=== PATIENT | female | born 1995 | race African-American/Black ===

== ENCOUNTER 2020-05-15 11:23 | Emergency (ER) | payer MEDICAID ==
[~2020-05-15] VITALS: Ht 160 cm; Wt 67.0 kg
[2020-05-15 12:10] VITALS: BP 114/73
[2020-05-15] MEDS ORDERED: HYDROcodone/APAP 5/325MG 1 TAB TABLET PO ONE (12:30)
--- NOTE | 2020-05-15 12:34 | PHYS DOC ---
Past Medical History Past Medical History: No Pertinent History Past Surgical History: Other Additional Past Surgical Histo: chest Smoking Status: Never Smoker Alcohol Use: Occasionally General Adult EDM: Chief Complaint: ANKLE PROBLEM HPI: HPI: Patient is a 25 year old female who presents with states she was out with friends last night when she rolled her left ankle inward. She states that was fine yesterday and when she woke this morning there was bruising to the medial and lateral foot and medial lateral ankle with swelling to the medial ankle. Range of motion is intact but it is painful so it is limited. Patient states she can wiggle her toes. She denies any numbness or tingling, coolness to the extremity, focal weakness. She states that she can put some pressure on it but it is painful. Patient rates her sharp pain at a 9 out of 10. She states she did not take any medication prior to arrival. Review of Systems: Review of Systems: Constitutional: Denies fever or chills. [] Eyes: Denies change in visual acuity. [] HENT: Denies nasal congestion or sore throat. [] Respiratory: Denies cough or shortness of breath. [] Cardiovascular: Denies chest pain. + Left ankle 2+ edema. + Left foot 1+ edema [] GI: Denies abdominal pain, nausea, vomiting, bloody stools or diarrhea. [] : Denies dysuria. [] Musculoskeletal: Denies back pain. +Left ankle joint pain. + Left foot pain [] Integument: Denies rash. + Left ankle bruising, + left ankle bruising [] Neurologic: Denies headache, focal weakness or sensory changes. [] Endocrine: Denies polyuria or polydipsia. [] Lymphatic: Denies swollen glands. [] Psychiatric: Denies depression or anxiety. [] Heart Score: Risk Factors: Risk Factors: DM, Current or recent (<one month) smoker, HTN, HLP, family history of CAD, obesity. Risk Scores: Score 0 - 3: 2.5% MACE over next 6 weeks - Discharge Home Score 4 - 6: 20.3% MACE over next 6 weeks - Admit for Clinical Observation Score 7 - 10: 72.7% MACE over next 6 weeks - Early Invasive Strategies Current Medications: Current Medications Medications (Trade) Dose Ordered Sig/Ananth Start Time Stop Time Status Last Admin Dose Admin Acetaminophen/ Hydrocodone Bitart (Lortab 5/325) 1 tab 1X ONCE 05/15/20 12:30 05/15/20 12:31 UNV Allergies: Allergies: Allergies Coded Allergies Type Severity Reaction Last Updated Verified No Known Drug Allergies 05/15/20 No Physical Exam: PE: Constitutional: Well developed, well nourished, no acute distress, non-toxic appearance. [] HENT: Normocephalic, atraumatic, bilateral external ears normal, oropharynx moist, no oral exudates, nose normal. [] Eyes: PERRLA, EOMI, conjunctiva normal, no discharge. [] Neck: Normal range of motion, no tenderness, supple, no stridor. [] Cardiovascular:Heart rate regular rhythm, no murmur [] Lungs & Thorax: Bilateral breath sounds clear to auscultation [] Abdomen: Bowel sounds normal, soft, no tenderness, no masses, no pulsatile masses. [] Skin: Warm, dry, no erythema, no rash. Left lateral ankle and foot bruising. Left medial ankle and foot bruising [] Back: No tenderness, no CVA tenderness. [] Extremities: Left lateral foot and ankle tenderness, no cyanosis, no clubbing, left ankle ROM intact but limited due to swelling, left lateral foot 1+ and left lateral ankle 2+ edema. [] Neurologic: Alert and oriented X 3, normal motor function, normal sensory function, no focal deficits noted. [] Psychologic: Affect normal, judgement normal, mood normal. [] EKG: EKG: [] Radiology/Procedures: Radiology/Procedures: [] Impression: [facility] [address] [place] [address] IMAGING REPORT Signed PATIENT: LEIGHTON ECHEVARRIA ACCOUNT: [id number] : 1995 LOCATION: ER AGE: 25 SEX: F EXAM STATUS: PRE ER ORD. PHYSICIAN: IVAN JEFFRIES APRN REASON: PAIN AND BRUISING AFTER ROLLING ANKLE PROCEDURE: FOOT LEFT 3V PROCEDURE: XR EXAM OF ANKLE_LEFT 3V, XR FOOT_LEFT 3 VIEWS STUDY DATE: 05/15/2020 CLINICAL INDICATION / HISTORY: Reason: PAIN AND BRUISING AFTER ROLLING ANKLE / Spl. Instructions: / History: . TECHNIQUE: AP, lateral and oblique views of the left foot. COMPARISON: None FINDINGS: There is an acute nondisplaced oblique fracture of the shaft of the proximal fourth phalanx. There is also an avulsion fracture on the dorsum of the navicular bone.. The bone density is normal. The joint space widths are maintained, and there are no erosions to suggest an inflammatory arthropathy. There is mild soft tissue swelling on the dorsal aspect of the midfoot. IMPRESSION: 1. Acute nondisplaced fourth proximal phalangeal fracture. 2. Acute avulsion fracture on the dorsal aspect of the navicula. PROCEDURE: XR EXAM OF ANKLE_LEFT 3V, XR FOOT_LEFT 3 VIEWS STUDY DATE: 05/15/2020 CLINICAL INDICATION / HISTORY: Reason: PAIN AND BRUISING AFTER ROLLING ANKLE / Spl. Instructions: / History: . TECHNIQUE: Left ankle 3 views. COMPARISON: Left foot x-rays same day FINDINGS: The ankle mortise is approximated, and the talar dome is unremarkable. The joint space widths are maintained. A subtle avulsion fracture on the dorsum of the navicula is identified. Otherwise no fracture or dislocation is identified. No soft tissue swelling is appreciated. IMPRESSION: Acute avulsion fracture on the dorsum of the navicula is identified, associated with mild anterior ankle and dorsal midfoot soft tissue swelling.. The ankle is well aligned with no acute injury otherwise noted. Electronically signed by: Rosa Perez MD (05/15/2020 12:49 PM) [facility] [place] [facility] [place] DICTATED and SIGNED BY: ROSA PEREZ MD DATE: 05/15/20 [id number] 0 Course & Med Decision Making: Course & Med Decision Making Pertinent Labs and Imaging studies reviewed. (See chart for details) See HPI. No joint laxity. Tenderness to the lateral side of the foot with slight bruising and 1+ swelling. Pedal pulse strong and palpable. Patient has lateral ankle tenderness with 2+ swelling and some bruising. No joint laxity. Patient can wiggle her toes. Cap refill less than 2 seconds. Skin otherwise pink warm and dry. No pain to the tib-fib with palpation. No deformities are noted. IMPRESSION: 1. Acute nondisplaced fourth proximal phalangeal fracture. 2. Acute avulsion fracture on the dorsal aspect of the navicula. Patient placed in a stirrup and posterior splint. Splint assessment: Neurovascularly intact post splint replacement with good fit. Patient's extremity symptoms have stabilized well they have been evaluated in the department and are appropriate for outpatient follow-up. No evidence of compartment syndrome, neurologic injury, vascular injury, open joint, open fracture, tendon laceration, or foreign body. [] Dragon Disclaimer: Dragon Disclaimer: This electronic medical record was generated, in whole or in part, using a voice recognition dictation system. Departure Departure Impression: Primary Impression: Phalanges fracture, foot Qualified Codes: S92.912A - Unspecified fracture of left toe(s), initial encounter for closed fracture Additional Impression: Navicular fracture, foot Qualified Codes: S92.255A - Nondisplaced fracture of navicular [scaphoid] of left foot, initial encounter for closed fracture Disposition: 01 DC HOME SELF CARE/HOMELESS Condition: STABLE Referrals: GALA SELF MD Patient Instructions: Foot Fracture Additional Instructions: Follow-up with orthopedic as soon as possible. Take medication as prescribed and with food. Remember do not drink or drive or take any other narcotic drugs on top of this because they do make you sleepy. Use ice and elevation to help with pain and swelling. If you begin having numbness or your skin changes to a purple or blue type color you can loosen the splint. Scripts Hydrocodone Bit/Acetaminophen (HYDROCODONE-APAP 5-325 ) 1 Tab Tablet 1 TAB PO PRN Q6HRS PRN for PAIN, #15 TAB 0 Refills Prov: IVAN JEFFRIES APRN 05/15/20 Ibuprofen (IBUPROFEN) 600 Mg Tablet 600 MG PO PRN Q6HRS PRN for INFLAMMATION, #25 TAB Prov: IVAN JEFFRIES APRN 05/15/20 IVAN JEFFRIES APRN May 15, 2020 12:34
--- NOTE | 2020-05-15 12:52 | RAD ---
PROCEDURE: XR EXAM OF ANKLE_LEFT 3V, XR FOOT_LEFT 3 VIEWS STUDY DATE: 05/15/2020 CLINICAL INDICATION / HISTORY: Reason: PAIN AND BRUISING AFTER ROLLING ANKLE / Spl. Instructions: / History: . TECHNIQUE: AP, lateral and oblique views of the left foot. COMPARISON: None FINDINGS: There is an acute nondisplaced oblique fracture of the shaft of the proximal fourth phalanx . There is also an avulsion fracture on the dorsum of the navicular bone.. The bone density is normal . The joint space widths are maintained, and there are no erosions to suggest an inflammatory arthrop athy. There is mild soft tissue swelling on the dorsal aspect of the midfoot. IMPRESSION: 1. Acute nondisplaced fourth proximal phalangeal fracture. 2. Acute avulsion fracture on the dorsal aspect of the navicula. PROCEDURE: XR EXAM OF ANKLE_LEFT 3V, XR FOOT_LEFT 3 VIEWS STUDY DATE: 05/15/2020 CLINICAL INDICATION / HISTORY: Reason: PAIN AND BRUISING AFTER ROLLING ANKLE / Spl. Instructions: / History: . TECHNIQUE: Left ankle 3 views. COMPARISON: Left foot x-rays same day FINDINGS: The ankle mortise is approximated, and the talar dome is unremarkable. The joint space widt hs are maintained. A subtle avulsion fracture on the dorsum of the navicula is identified. Otherwise no fracture or dislocation is identified. No soft tissue swelling is appreciated. IMPRESSION: Acute avulsion fracture on the dorsum of the navicula is identified, associated with mild anterior ankle and dorsal midfoot soft tissue swelling.. The ankle is well aligned with no acute inj ury otherwise noted. Electronically signed by: Janay Perez MD (05/15/2020 12:49 PM) [facility] [place]
[2020-05-15] MEDS ORDERED: HYDR-2761 PO (13:03)
[2020-05-15] MEDS ORDERED: IBUP-1007 PO (13:03)
== END 2020-05-15 13:55 | disposition home or self-care (01) ==
LOC: ER 11:23
DX: S92.512A Displaced fracture of proximal phalanx of left lesser toe(s), initial encounter for closed fracture (principal); S92.255A Nondisplaced fracture of navicular [scaphoid] of left foot, initial encounter for closed fracture; Z98.890 Other specified postprocedural states; X58.XXXA Exposure to other specified factors, initial encounter; Y93.89 Activity, other specified; Y92.89 Other specified places as the place of occurrence of the external cause; Y99.8 Other external cause status
CPT/HCPCS: 29515; 73610; 73630; 99284